=== PATIENT | male | born 1975 | race Hispanic/Latino ===

== ENCOUNTER 2019-09-09 12:00 | Inpatient (IN) | payer OTHER ==
[~2019-09-09] VITALS: Ht 186.7 cm; Wt 128.9 kg
[2019-09-09 09:25] LABS: HEMATOCRIT 43.7 % (42-54); LYMPHOCYTES % (AUTO) 33.9 % (21.0-51.0); MEAN CORPUSCULAR HEMOGLOBIN 30.3 pg (27.0-33.0); MEAN CORPUSCULAR HGB CONC 33.9 g/dL (32.0-36.0); MEAN CORPUSCULAR VOLUME 89.5 fL (79-99); MONOCYTES % (AUTO) 8.8 % (3.0-13.0); NEUTROPHILS % (AUTO) 54.1 % (40.0-77.0); PLATELET COUNT (AUTO) 250 K/uL (130-400); RED BLOOD CELL COUNT(AUTO) 4.88 MIL/uL (4.50-6.20); RED CELL DISTRIBUTION WIDTH 12.2 % (11.0-15.5)
[2019-09-09 09:41] LABS: CREATININE 0.9 mg/dL (0.5-1.5); POTASSIUM 4.2 mmol/L (3.5-5.1)
[2019-09-09 09:44] LABS: APPEARANCE,URINE Clear (CLEAR); BILIRUBIN,URINE Negative (NEGATIVE); COLOR,URINE Dark Yellow (YELLOW); GLUCOSE, URINE (UA) Negative (NEGATIVE); KETONES,URINE Negative (NEGATIVE); LEUKOCYTE ESTERASE ,URINE Negative (NEGATIVE); NITRATE,URINE Negative (NEGATIVE); OCCULT BLOOD,URINE Negative (NEGATIVE); PROTEIN,URINE Negative (NEGATIVE)
[2019-09-09 09:49] LABS: INR 0.94 (0.85-1.15); PROTHROMBIN TIME 10.2 SEC (9.6-11.6)
[2019-09-09 09:53] LABS: BACTERIA,URINE Rare /HPF (None Seen); RBC,URINE 0-1 /HPF (0-1); SQUAMOUS EPITHELIAL CELL,UR Rare /HPF (0-2); WBC,URINE 0-1 /HPF (0-1)
[2019-09-10 15:38] VITALS: BP 146/82
[2019-09-10] MEDS ORDERED: HYDR-3830 PO (16:11)
[2019-09-10] MEDS ORDERED: TRAM50TA4 PO (16:11)
[2019-09-10] MEDS ORDERED: DIPH25 PO (16:11)
[2019-09-10] MEDS ORDERED: BUSP5TAB3 PO (16:11)
[2019-09-13] VITALS (26 sets, daily range): BP systolic 110–164; BP diastolic 58–103
[2019-09-13] MEDS ORDERED: LIDOCAINE PF 2% 5ML ABBOJECT ONE (10:36)
[2019-09-13] MEDS ORDERED: ONDANSETRON HCL 4 MG/2 ML VIAL ONE (10:37)
[2019-09-13] MEDS ORDERED: PROPOFOL 10 MG/ML 20ML VIAL IV ONE (10:37)
[2019-09-13] MEDS ORDERED: NEOSTIGMINE 5MG/5ML SYR IV ONE (10:37)
[2019-09-13] MEDS ORDERED: GLYCOPYRROLATE 1 MG/5 ML SYRINGE ONE (10:37)
[2019-09-13] MEDS ORDERED: DEXAMETHASONE SOD PHOSPHATE 10MG/ML 1ML VIAL ONE (10:37)
[2019-09-13] MEDS ORDERED: MIDAZOLAM HCL 1 MG/ML 2ML VIAL ONE (10:37)
[2019-09-13] MEDS ORDERED: ROCURONIUM 10MG/1ML SYR 10 MG/ML ML ONE (10:38)
[2019-09-13] MEDS ORDERED: FENTANYL CITRATE PF 50 MCG/1 ML 2ML VIAL ONE ×2 (10:38→13:33)
[2019-09-13] MEDS ORDERED: LACTATED RINGERS 1000ML 1,000 ML IV ONE (10:50)
--- NOTE | 2019-09-13 11:03 | NUR ---
POTENTIAL FOR INFECTION: CLIPPED LEFT KNEE / LT LEG PER CAIT CHAVEZ, FOLLOWED BY WIPING WITH EMI: 2% CHLORHEXIDINE GLUCONATE CLOTH PATIENTS PRE-OP SKIN PREP.
[2019-09-13] MEDS ORDERED: ROPIVACAINE 0.5% 5MG/ML 30ML IJ ONE (11:12)
[2019-09-13] MEDS: CEFAZOLIN SODIUM 1 GM VIAL ONE ×2 (11:17→12:45)
[2019-09-13] MEDS ORDERED: METOCLOPRAMIDE 10 MG/2 ML VIAL ONE (11:18)
[2019-09-13] MEDS ORDERED: ACETAMINOPHEN EXTRA STRENGTH 500 MG TABLET ONE (11:18)
[2019-09-13] MEDS ORDERED: CELECOXIB 200 MG CAP ONE (11:18)
[2019-09-13] MEDS ORDERED: CEFAZOLIN SODIUM 1 GM VIAL ONE (12:21)
[2019-09-13] MEDS ORDERED: TRANEXAMIC ACID 1000MG/10ML ONE ×2 (12:21→16:09)
[2019-09-13] MEDS ORDERED: EPHEDRINE SULFATE 50 MG/ML AMPULE ONE (13:00)
[2019-09-13] MEDS ORDERED: SUCCINYLCHOLINE CHLORIDE 20 MG/ML 10 ML VIAL ONE (15:01)
[2019-09-13] MEDS ORDERED: DiphenhydrAMINE HCL 50 MG/ML VIAL IVP PRN (16:00)
[2019-09-13] MEDS ORDERED: CALCIUM CARBONATE 500 MG TABLET PO PRN (16:00)
[2019-09-13] MEDS ORDERED: POTASSIUM CHLORIDE 10% ELIXIR 20 MEQ/15 ML UDCUP PO PRN (16:00)
[2019-09-13] MEDS ORDERED: LIDOCAINE HCL-MPF 1% 2ML VIAL IV PRN (16:00)
[2019-09-13] MEDS ORDERED: TRAMADOL HCL 50 MG TABLET PO PRN (16:00)
[2019-09-13] MEDS ORDERED: TEMAZEPAM 15 MG CAPSULE PO PRN (16:00)
[2019-09-13] MEDS ORDERED: POTASSIUM CHLORIDE 20 MEQ ERTAB PO PRN (16:00)
[2019-09-13] MEDS ORDERED: FERROUS FUMARATE 324 MG TABLET PO PRN (16:00)
[2019-09-13] MEDS ORDERED: ONDANSETRON HCL 4 MG/2 ML VIAL IVP PRN (16:00)
[2019-09-13] MEDS ORDERED: POTASSIUM CHLORIDE 20MEQ/100ML 100 ML IV PRN (16:00)
[2019-09-13] MEDS ORDERED: MEPERIDINE-PF 25 MG/ML SYG ONE (17:13)
[2019-09-13] MEDS: KETOROLAC TROMETHAMINE 15MG/ML IV PRN (17:15)
[2019-09-13] MEDS: OXYCODONE HCL 5 MG TAB PO PRN ×2 (19:25→23:18)
[2019-09-13] MEDS: ACETAMINOPHEN EXTRA STRENGTH 500 MG TABLET PO SCH ×2 (19:26→23:37)
[2019-09-13] MEDS: SODIUM CHLORIDE 0.9% 1000ML 1,000 ML IV SCH (19:27)
[2019-09-13] MEDS: CEFAZOLIN 3GM /D5W 100ML 100 ML IV SCH (20:22)
[2019-09-13] MEDS: CELECOXIB 200 MG CAP PO SCH (20:22)
[2019-09-13] MEDS: FAMOTIDINE 20MG TAB 20 MG TAB PO SCH (20:22)
[2019-09-13] MEDS: ASPIRIN 81MG TAB.CHEW PO SCH (20:22)
[2019-09-13] MEDS: PREGABALIN 25 MG CAP PO SCH (20:22)
[2019-09-13] MEDS: HYDROMORPHONE 1 MG/1 ML AMP IVP PRN ×2 (20:23→22:28)
--- NOTE | 2019-09-13 23:00 | NUR ---
ACTIVITY PATIENT ASSISTED TO EDGE OF BED TO DANGLE LEGS. PATIENT TOLERATED WELL AND WAS ASSISTED BACK TO BED.
[2019-09-14] VITALS: BP 127/60
[2019-09-14] MEDS: SODIUM CHLORIDE 0.9% 1000ML 1,000 ML IV SCH ×2 (01:08→11:52)
[2019-09-14] MEDS: HYDROMORPHONE 1 MG/1 ML AMP IVP PRN ×5 (01:19→23:15)
[2019-09-14] MEDS: OXYCODONE HCL 5 MG TAB PO PRN ×4 (03:52→20:23)
[2019-09-14 04:00] VITALS: BP 127/60
[2019-09-14] MEDS: CEFAZOLIN 3GM /D5W 100ML 100 ML IV SCH (05:25)
[2019-09-14 05:46] LABS: HEMATOCRIT 37.6 % (42-54); MEAN CORPUSCULAR HEMOGLOBIN 30.2 pg (27.0-33.0); MEAN CORPUSCULAR HGB CONC 33.8 g/dL (32.0-36.0); MEAN CORPUSCULAR VOLUME 89.3 fL (79-99); RED BLOOD CELL COUNT(AUTO) 4.21 MIL/uL (4.50-6.20); RED CELL DISTRIBUTION WIDTH 12.4 % (11.0-15.5); WHITE BLOOD COUNT (AUTO) 11.2 K/uL (4.8-10.8)
[2019-09-14 05:58] LABS: POTASSIUM 4.8 mmol/L (3.5-5.1)
[2019-09-14] MEDS: ACETAMINOPHEN EXTRA STRENGTH 500 MG TABLET PO SCH ×3 (08:00→23:15)
[2019-09-14 08:38] VITALS: BP 128/77
[2019-09-14] MEDS: TAMSULOSIN HCL 0.4 MG CAP.ER.24H PO SCH (09:00)
[2019-09-14] MEDS: POLYETHYLENE GLYCOL 3350 17 GM POWD.PACK PO SCH (10:39)
[2019-09-14] MEDS: FAMOTIDINE 20MG TAB 20 MG TAB PO SCH ×2 (10:39→20:23)
[2019-09-14] MEDS: ASPIRIN 81MG TAB.CHEW PO SCH ×2 (10:40→20:23)
[2019-09-14] MEDS: CELECOXIB 200 MG CAP PO SCH ×2 (10:40→20:23)
[2019-09-14] MEDS: PREGABALIN 25 MG CAP PO SCH ×2 (10:40→20:23)
[2019-09-14] MEDS: HYDROXYZINE HCL 10 MG TABLET PO SCH (10:41)
[2019-09-14 11:17] VITALS: BP 138/67
[2019-09-14] MEDS: BUSPIRONE HCL 5 MG TABLET PO SCH (13:20)
[2019-09-14 16:48] VITALS: BP 150/75
[2019-09-14 19:00] VITALS: BP 158/89
[2019-09-15] VITALS: BP 145/94
[2019-09-15] MEDS: HYDROMORPHONE 1 MG/1 ML AMP IVP PRN ×3 (00:55→04:44)
[2019-09-15] MEDS: OXYCODONE HCL 5 MG TAB PO PRN ×5 (01:29→21:25)
[2019-09-15 04:00] VITALS: BP 164/94
[2019-09-15 08:35] VITALS: BP 159/96
[2019-09-15] MEDS: POLYETHYLENE GLYCOL 3350 17 GM POWD.PACK PO SCH (08:53)
[2019-09-15] MEDS: CELECOXIB 200 MG CAP PO SCH ×2 (08:54→20:11)
[2019-09-15] MEDS: PREGABALIN 25 MG CAP PO SCH ×2 (08:54→20:11)
[2019-09-15] MEDS: ACETAMINOPHEN EXTRA STRENGTH 500 MG TABLET PO SCH ×3 (08:54→23:37)
[2019-09-15] MEDS: FAMOTIDINE 20MG TAB 20 MG TAB PO SCH ×2 (08:54→20:11)
[2019-09-15] MEDS: TAMSULOSIN HCL 0.4 MG CAP.ER.24H PO SCH (08:54)
[2019-09-15] MEDS: ASPIRIN 81MG TAB.CHEW PO SCH ×2 (08:55→20:11)
[2019-09-15] MEDS: HYDROXYZINE HCL 10 MG TABLET PO SCH (08:55)
[2019-09-15] MEDS: BUSPIRONE HCL 5 MG TABLET PO SCH (12:26)
--- NOTE | 2019-09-15 16:16 | NUR ---
DC PLAN VISITED WITH PATIENT. PATIENT LIVES WITH FATHER. INDEPENDENT ABLE TO PERFORM ADL'S. PATIENT HAS NO SERVICES OR DME'S. FEELS SAFE TO RETURN HOME. [facility] SIGNED FOR HOME HEALTH AND DME. SPOKE TO LUIS E CORTES SAID PATIENT ASSIGNED TO [facility]. STILL PENDING AUTH FOR DME. CALLED [facility] SAID PATIENT IS ACCEPTED JUST NEED REPORT. FAXED CLINICALS. Addendum: 09/15/19 at 1624 by TASHA PATEL RN CM Amended: Links added.
[2019-09-15 17:15] VITALS: BP 143/83
[2019-09-15] MEDS ORDERED: HYDR-4457 PO (17:50)
[2019-09-15] MEDS ORDERED: ASPI-1005 PO (17:50)
[2019-09-15 19:32] VITALS: BP 128/85
[2019-09-15] MEDS: KETOROLAC TROMETHAMINE 15MG/ML IV PRN (20:14)
[2019-09-15 23:35] VITALS: BP 134/84
[2019-09-16 03:31] VITALS: BP 132/89
[2019-09-16] MEDS: OXYCODONE HCL 5 MG TAB PO PRN ×4 (05:43→17:35)
[2019-09-16 07:49] VITALS: BP 132/85
[2019-09-16] MEDS ORDERED: BISACODYL 5 MG TABLET.DR PO SCH (08:15)
[2019-09-16] MEDS: KETOROLAC TROMETHAMINE 15MG/ML IV PRN (08:40)
[2019-09-16] MEDS: TAMSULOSIN HCL 0.4 MG CAP.ER.24H PO SCH (08:40)
[2019-09-16] MEDS: ASPIRIN 81MG TAB.CHEW PO SCH (08:40)
[2019-09-16] MEDS: POLYETHYLENE GLYCOL 3350 17 GM POWD.PACK PO SCH (08:41)
[2019-09-16] MEDS: FAMOTIDINE 20MG TAB 20 MG TAB PO SCH (08:41)
[2019-09-16] MEDS: CELECOXIB 200 MG CAP PO SCH (08:41)
[2019-09-16] MEDS: ACETAMINOPHEN EXTRA STRENGTH 500 MG TABLET PO SCH ×2 (08:41→16:00)
[2019-09-16] MEDS: HYDROXYZINE HCL 10 MG TABLET PO SCH (08:41)
[2019-09-16] MEDS: PREGABALIN 25 MG CAP PO SCH (08:41)
[2019-09-16 11:18] VITALS: BP 117/77
[2019-09-16] MEDS: BUSPIRONE HCL 5 MG TABLET PO SCH (12:22)
--- NOTE | 2019-09-16 14:50 | NUR ---
DC PLAN SPOKE TO [facility] SAID THEY APPROVED BUT CAN NOT DELIVER IF FAMILY CAN GO TO [facility] TO [facility] EQU[facility]. GAVE INFO TO PATIENT SAID THAT HE WILL TRY. CM WILL FOLLOW UP IN 20 MIN TO SEE IF CAN BE DONE. IF NOT MIGHT LEND WALKER UNTIL THEY ARE ABLE TO [facility]HRO[facility] LAB[facility]. Addendum: 09/16/19 at 1452 by TASHA PATEL RN CM Amended: Links added.
[2019-09-16] MEDS ORDERED: BISACODYL 10 MG SUPP.RECT RC PRN (16:00)
[2019-09-16 16:29] VITALS: BP 140/84
== END 2019-09-16 17:40 | disposition home health service (06) | DRG 470 ==
LOC: EDSTATUS 12:00 → DAHIP 09-13 09:44 → 3DH 09-13 17:44
PROVIDERS: ADMIT Orthopaedic Surgery; ATTEND Orthopaedic Surgery
PROC: 0SRD0L9 Replacement of Left Knee Joint with Medial Unicondylar Synthetic Substitute, Cemented, Open Approach (ICD-10-PCS; principal; 2019-09-13 13:37)
PROC: 3E0T3BZ Introduction of Anesthetic Agent into Peripheral Nerves and Plexi, Percutaneous Approach (ICD-10-PCS; 2019-09-13 13:37)
DX: M21.969 Unspecified acquired deformity of unspecified lower leg (principal); M95.8 Other specified acquired deformities of musculoskeletal system; G89.29 Other chronic pain; Z20.828 Contact with and (suspected) exposure to other viral communicable diseases; F41.9 Anxiety disorder, unspecified; S83.242D Other tear of medial meniscus, current injury, left knee, subsequent encounter; X58.XXXD Exposure to other specified factors, subsequent encounter
CPT/HCPCS: 36415; 73562; 80048; 81001; 85025; 85027; 85610; 87641; 88305; 88311; 96374; 97039; G0378; J0330; J0690; J1100; J1170; J1885; J2001; J2175; J2250; J2405; J2704; J2710; J2765; J2795; J3010; J3490; J7030; J7120; U0003